=== PATIENT | female | born 1960 | race Caucasian/White ===

== ENCOUNTER 2023-04-01 22:36 | Emergency (ER) | payer OTHER, SELFPAY ==
[2023-04-01 22:37] VITALS: BP 189/115; PULSE 92; RESP 16; TEMP 36.3; O2SAT 98; BMI 38.2
--- NOTE | 2023-04-01 22:46 | EDS_ITS ---
HPI History of Present Illness Chief Complaint: Other, Pain/Inj Narrative Narrative: Patient presents with pain around the left shoulder area. She states occasionally it shoots down the arm to her ring and middle finger. She woke up this morning and it was just sore. It sore to move. She took Aleve in the morning and that seemed to help. Later in the day she tried oxycodone which did not help. She then tried another Aleve and ice and that seems to help. She states is not in the front at all. She has no shortness of breath nausea vomiting chest pain diaphoresis. She is not coughing. No headache. No weakness. It is worse if she moves the area. It is better if she rests. Past medical history includes high blood pressure, psoriatic arthritis. Patient routine medicine or losartan, acyclovir, daily aspirin, multivitamins. Patient's allergies are reviewed yet she has oxycodone at home and she took that. Oxycodone just causes nausea. [facility] Medical History (Updated 04/02/23 @ 00:[address] Chas Amaral MD) Hypertension Psoriatic arthritis Sleep apnea Home Medications Peculiar Mune 04/01/23 [History Last Taken Unknown] acyclovir 200 mg capsule 200 mg PO DAILY 04/01/23 [History Last Taken Unknown] ascorbic acid (vitamin C) 500 mg capsule 1,000 mg PO DAILY 04/01/23 [History Last Taken Unknown] aspirin 81 mg capsule 81 mg PO DAILY 04/01/23 [History Last Taken Unknown] fexofenadine 180 mg tablet 180 mg PO DAILY 04/01/23 [History Last Taken Unknown] losartan 50 mg tablet 50 mg PO DAILY 04/01/23 [History Last Taken Unknown] omega-3 fatty acids PO 04/01/23 [History Last Taken Unknown] oxycodone 5 mg capsule 5 mg PO Q4H PRN Pain 04/01/23 [History Last Taken Unknown] cyclobenzaprine 10 mg tablet 10 mg PO TID PRN Muscle Spasm #15 TABLETS 04/02/23 [Rx Last Taken Unknown] ondansetron 4 mg disintegrating tablet 4 mg PO Q8H PRN PRN Nausea #10 tabs 04/02/23 [Rx Last Taken Unknown] oxycodone-acetaminophen 5 mg-325 mg tablet (Percocet) 1 tab PO Q6H 3 days #12 tabs 04/02/23 [Rx Last Taken Unknown] Allergy/AdvReac Type Severity Reaction Status Date / Time acetaminophen [From Percocet] AdvReac Nausea Verified 04/01/23 22:37 oxycodone [From Percocet] AdvReac Nausea Verified 04/01/23 22:37 propoxyphene AdvReac Nausea Verified 04/01/23 22:37 [From Darvocet-N] Surgical History (Updated 04/01/23 @ 22:51 by Rosalia Louis) H/O: Social History Smoking Status: Never smoker ROS ROS ED Constitutional Constitutional ED: Denies chills, fever(s) or subjective ENT ENT ED: Denies sore throat Cardiovascular Cardiovascular: Denies chest pain, palpitations or racing heartbeat Respiratory/Chest Respiratory/Chest: Denies cough or dyspnea Gastrointestinal Gastrointestinal: Denies nausea or vomiting Musculoskeletal Musculoskeletal: Reports other Details: See history of present illness Integumentary Reports other Details: No recent infections. ; Denies abscess, Abrasions or rash Neurologic Neurologic: Denies headache(s) Hematologic/Lymphatic Hematologic/Lymphatic: Denies easy bleeding or easy bruising EXAM Physical Exam Narrative Exam Narrative: CONSTITUTIONAL: Patient is nontoxic in appearance. The patient looks comfortabl e. Work of breathing looks normal. He does not look toxic or ill. HEENT: No notable trauma. Mucous membranes moist. EYES: No conjunctival injection. No proptosis. NECK:No JVD. No stridor. She does have some mild paraspinal tenderness at the lower third of her C-spine. Some slight tightness of the muscles. But there is no mass. No erythema. CARDIOVASCULAR: Regular rate. Regular rhythm. No notable murmur. No JVD. Full pulses are strong and completely normal and equal left right upper and lower. RESPIRATORY: No respiratory distress. Breathing is unlabored. No wheezes. No rhonchi. No rales. No pain with a deep breath. She has no crepitance. GASTROINTESTINAL: Not distended. Bowel sounds are normal. No tenderness. No guarding. No rebound. No palpable mass. No bruit is heard. GENITOURINARY: No CVA tenderness. MUSCULOSKELETAL: Atraumatic. No peripheral edema. No cord. No tenderness along the deep venous system. No asymmetry. No distended veins. She has excellent distal pulses. There is some mild tenderness at the proximal posterior tricep area on the left. There is parascapular tenderness mostly on the medial border and slightly inferior border. Some mild on the infraspinatus muscle. There is a lidocaine patch on the area. This is removed. There is no rash under it. There is no crepitance. There is no erythema. There is no vesicles. There is no difference in temperature. Patient does have increased pain with overhead motion and reaching up. NEUROLOGICAL: Patient is alert and appropriate. No focal deficit noted. She has normal sensation distally. She can easily tell exactly what portion of what finger I am touching. SKIN: No noted rashes. No diaphoresis. PSYCHIATRIC: Patient is calm. Mood is appropriate. Const Vital Signs: 04/01/23 22:37 04/01/23 22:48 Temperature 97.4 F L Temperature Source Temporal Pulse Rate 92 Respiratory Rate 16 Respiratory Effort Normal Blood Pressure 189/115 H Blood Pressure Mean 139 Pulse Ox 98 Oxygen Delivery Method Room Air MDM MDM MDM Narrative Medical decision making narrative: Patient evidently did do some gardening prior to this. She does not have tearing or ripping pain. This is slow onset. It is stayed in the same area. There is no migration of pain. It is reproducible with palpation and with motion. Her first blood pressure was up but it is come down quite a bit just with rechecks. She was moving and it was hard to get the initial blood pressure. Exam is not consistent with dissection or necrotizing fasciitis. There is no historical or exam findings consistent with acute coronary syndrome. I will get her some meds for pain. We will get an x-ray of the area to make sure there is no visible lesion or in that area. The peak blood pressure was 143/107 and 171/87. My independent interpretation the patient's two-view chest x-ray shows normal cardiac silhouette and mediastinal structures. Normal perivertebral aortic stripe. No pneumothorax. No mass. There are some arthritic changes noted in the shoulder but her pain really is not in the joint. Final reading by radiology is no radiographic evidence of acute cardiopulmonary disease. I rechecked the patient. She feels much better. She still has a little bit of reproducible pain with palpation. But there is no crepitance. No erythema. No development of a rash. I discussed with the patient that I do not think this is dissection at all. I do not think this is heart disease. No indication that this is necrotizing fasciitis. I can passively and actively move her shoulder quite well there is no indication of involvement of the joint. I will write for a few oxycodone. I did review online prescribing report and her last prescriptions were back in 2020. I will write for a few Zofran because oxycodone causes nausea for her. We will also get her on a muscle relaxant that should help. I discussed using ice rather than heat. She states she had put heat on it and when she took it off the pain increased and that is one of the things that prompted her to come in. We talked about reasons to return and expected course and follow-up. Radiography Diagnostic Testing: Clinical Impression(s) from Imaging Studies Chest X-Ray 04/01/23 23:25 IMPRESSION: No radiographic evidence of acute cardiopulmonary disease. Electronically Signed: René Salinas MD at 23:53 EDT Reading Location ID and State: [facility] / [place] Tel , Service support , Discharge Plan Triage Chief Complaint: Other, Pain/Inj ED Provider: Chas Amaral Dx/Rx/DC Orders Clinical Impression: Periscapular pain Instructions: ED Back Spasm, No Trauma Prescriptions: New cyclobenzaprine [cyclobenzaprine] 10 mg tablet 10 mg PO TID PRN (Reason: Muscle Spasm) Qty: 15 0RF oxycodone-acetaminophen [Percocet] 5-325 mg tablet 1 tab PO Q6H 3 Days Qty: 12 0RF ondansetron [ondansetron] 4 mg tablet,disintegrating 4 mg PO Q8H PRN PRN (Reason: Nausea) Qty: 10 0RF No Action losartan 50 mg Tablet 50 mg PO DAILY fexofenadine [Deneen] 180 mg Tablet 180 mg PO DAILY oxycodone 5 mg Capsule 5 mg PO Q4H PRN (Reason: Pain) acyclovir 200 mg Capsule 200 mg PO DAILY Manquin 3 Capsule PO ascorbic acid (vitamin C) 500 mg Capsule 1,000 mg PO DAILY aspirin 81 mg Capsule 81 mg PO DAILY Melo Bertrand Primary Care Provider: Patrick Gray NP Referrals: Patrick Gray [employer], [employer]-C [Primary Care Provider] - 3-5 Days if not improving Disposition Disposition: Home, Self Care
[2023-04-01] MEDS: Ondansetron ODT 4 MG Tablet PO (23:06)
[2023-04-01] MEDS: HYDROmorphone 1 MG/ML Syringe IM (23:07)
--- NOTE | 2023-04-01 23:25 | RAD_ITS ---
INDICATION: posterior chest pain EXAMINATION/TECHNIQUE: X-RAY - XR Chest 2 Views COMPARISON: None. FINDINGS: LINES/DEVICES: None. LUNGS: No consolidation, edema or effusion. No pneumothorax. MEDIASTINUM AND CARDIOVASCULAR STRUCTURES: Cardiac silhouette not enlarged. BONES AND SOFT TISSUES: Levocurvature of the thoracolumbar spine. No acute osseous finding.. RAD/Chest PA and Lateral IMPRESSION: No radiographic evidence of acute cardiopulmonary disease. Electronically Signed: René Salinas MD at 23:53 EDT ,
[2023-04-02 00:10] VITALS: BP 166/104; PULSE 78; RESP 16; O2SAT 97
[2023-04-02] MEDS: cycloBENZAPRine HCl 10 MG Tablet PO (00:19)
== END 2023-04-02 00:56 | disposition home or self-care (01) ==
PROVIDERS: Emergency Provider Emergency Medicine; PCP Nurse Practitioner Family; Visit Provider Emergency Medicine
DX: M25.512 Pain in left shoulder (principal); I10 Essential (primary) hypertension; Z79.82 Long term (current) use of aspirin
CPT/HCPCS: 71046; 96372; 99283